=== PATIENT | female | born 1990 ===

== ENCOUNTER 2017-12-27 11:30 | Inpatient (IN) | payer OTHER ==
[~2017-12-27] VITALS: Ht 162.6 cm; Wt 63.0 kg
[2018-01-23] MEDS ORDERED: NKM (09:55)
[2018-01-25] VITALS (15 sets, daily range): BP systolic 84–134; BP diastolic 48–85
[2018-01-25] MEDS ORDERED: Zemuron 50mg/5ml Inj IV ONE (06:20)
[2018-01-25] MEDS ORDERED: LR 1000ml 1,000 ML IVLG SCH (06:28)
[2018-01-25] MEDS ORDERED: Hydromorphone 0.5mg/0.5ml inj IVP PRN (06:30)
[2018-01-25] MEDS ORDERED: HYDROcodone/Acetamin 7.5/325 tab ORAL PRN (06:30)
[2018-01-25] MEDS ORDERED: Norco 5mg/325mg tab ORAL PRN ×2 (06:30→14:30)
[2018-01-25] MEDS ORDERED: DiphenhydrAMINE 50mg/ml Inj IVP PRN (06:30)
[2018-01-25] MEDS ORDERED: LORazepam Inj 2mg/ml 1ml IV PRN (06:30)
[2018-01-25] MEDS ORDERED: Metoclopramide 10mg/2ml Inj IVP PRN (06:30)
[2018-01-25] MEDS ORDERED: Atropine Inj 1mg/10ml Syr IV PRN (06:30)
[2018-01-25] MEDS ORDERED: Ketorolac 30mg Inj IV PRN ×3 (06:30→14:30)
[2018-01-25] MEDS ORDERED: fentaNYL 100 mcg/2 mL IV PRN (06:30)
[2018-01-25] MEDS ORDERED: Acetaminophen (Non formulary) 100 ML IV ONE (06:30)
[2018-01-25] MEDS ORDERED: oxyCODONE HCL/Acetaminophen 5/325mg ORAL PRN (06:30)
[2018-01-25] MEDS ORDERED: Midazolam 2mg/2ml Inj IVP PRN (06:30)
[2018-01-25] MEDS ORDERED: Labetalol 5mg/ml 20ml vial IV PRN (06:30)
[2018-01-25] MEDS ORDERED: EPINEPHrine 1mg/1ml Amp ONE (06:32)
--- NOTE | 2018-01-25 06:32 | Anethesia Preoperative Eval ---
Anesthesia Pre-op PMH/ROS General Date of Evaluation: Jan 25, 2018 Time of Evaluation: 07:21 Anesthesiologist: Buddy ASA Score: ASA 1 Mallampati Score Class I : Soft palate, uvula, fauces, pillars visible Class II: Soft palate, uvula, fauces visible Class III: Soft palate, base of uvula visible Class IV: Only hard plate visible Mallampati Classification: Class I Surgeon: Zeke Diagnosis: Neck Pain Surgical Procedure: ACDF C5-6 Family History: no anesthesia problems Allergies: Coded Allergies: No Known Allergies (Unverified , 01/25/18) Medications: see eMAR Past Medical History PSxH Narrative: Umbilical Hernia Repair Anesthesia Pre-op Phys. Exam Physician Exam Last Vital Signs Date Time Temp Pulse Resp B/P (MAP) Pulse Ox O2 Delivery O2 Flow Rate FiO2 01/25/18 06:00 97.9 65 18 119/71 100 Room Air 97.9 Constitutional: NAD Neurologic: CN 2-12 intact Cardiovascular: RRR Respiratory: CTA Gastrointestinal: S/NT/ND Airway Exam Mallampati Score: Class I MO: full ROM: limited Teeth: intact Anesthesia Pre-op A/P Labs Urine Test Test 01/25/18 05:30 Urine HCG, Qualitative Negative (NEGATIVE) Risk Assessment & Plan Assessment: ASA 1 Plan: GA, BIS, GlideScope Status Change Before Surgery: No Pre-Antibiotics Dru Grams Ancef IV Given Within 1 Hr of Incision: Yes Time Given: 07:36 Bandar Goodwin MD Jan 25, 2018 06:32
[2018-01-25] MEDS ORDERED: Thrombin 5000 units TOPIC ONE (06:33)
[2018-01-25] MEDS ORDERED: Bacitracin 50000 Units Vial ONE (06:33)
[2018-01-25] MEDS ORDERED: Bupivacaine 0.5% Inj 30 ml vial INJ ONE (06:33)
[2018-01-25] MEDS ORDERED: Lidocaine 1% Plain 30 ml INJ ONE ×3 (06:33→09:26)
[2018-01-25] MEDS ORDERED: Lidocaine 1% MPF 10mg/ml 5ml ONE (06:53)
[2018-01-25] MEDS ORDERED: Sodium Chloride 10ml vial INJ ONE (06:53)
[2018-01-25] MEDS ORDERED: Dexamethasone 4mg/ml vial ONE (06:53)
[2018-01-25] MEDS ORDERED: fentaNYL 100 mcg/2 mL IV ONE ×2 (06:54→08:18)
[2018-01-25] MEDS ORDERED: Ketamine 500mg Inj ONE (06:56)
[2018-01-25] MEDS ORDERED: ceFAZolin sod 2 GM in D5W 110 ML IVPB ONE (07:00)
--- NOTE | 2018-01-25 07:16 | Pre-Procedure Note/Attestation ---
Pre-Procedure Note/Attestation Complete Prior to Procedure Procedure Narrative: acdf c56 Indications for Procedure Pre-Operative Diagnosis: cervical radiculopathy Attestation I attest that I discussed the nature of the procedure; its benefits; risks and complications; and alternatives (and the risks and benefits of such alternatives ), prior to the procedure, with the patient (or the patient's legal applications sales representative). I attest that, if there was a reasonable possibility of needing a blood transfusion, the patient (or the patient's legal applications sales representative) was given the [facility] standardized written summary, pursuant to the Donaldo Aubree Blood Safety Act ([place] Health and Safety Code # 1645, as amended). I attest that I re-evaluated the patient just prior to the surgery and that there has been no change in the patient's H&P, except as documented below: Lopez Alanis MD Jan 25, 2018 07:16
[2018-01-25] MEDS ORDERED: Heparin 1000 units/ml 1ml Vial ONE ×2 (08:12→08:13)
--- NOTE | 2018-01-25 08:29 | 48 Hour Post Anesthesia Eval ---
Post Anesthesia Evaluation Procedure: ACDF C5-6 Date of Evaluation: Jan 25, 2018 Time of Evaluation: 11:43 Blood Pressure Systolic: 106 0: 72 Pulse Rate: 78 Respiratory Rate: 18 Temperature (Fahrenheit): 98.2 O2 Sat by Pulse Oximetry: 99 Airway: patent Nausea: No Vomiting: No Pain Intensity: 2 Hydration Status: adequate Cardiopulmonary Status: Stable Mental Status/LOC: patient returned to baseline Follow-up Care/Observations: 0 Post-Anesthesia Complications: 0 Follow-up care needed: ready to discharge Bandar Goodwin MD Jan 25, 2018 08:29
--- NOTE | 2018-01-25 08:29 | Immediate Post-Op Evaluation ---
Immediate Post-Op Evalulation Immediate Post-Op Evalulation Procedure: ACDF C5-6 Date of Evaluation: Jan 25, 2018 Time of Evaluation: 10:37 IV Fluids: 1000 LR Blood Products: 0 Estimated Blood Loss: 7 Urinary Output: 0 Blood Pressure Systolic: 109 Blood Pressure Diastolic: 65 Pulse Rate: 80 Respiratory Rate: 16 O2 Sat by Pulse Oximetry: 99 Temperature (Fahrenheit): 97.7 Pain Score (1-10): 3 Nausea: No Vomiting: No Complications 0 Patient Status: awake, reacts, patent, extubated, none Hydration Status: adequate Dru Grams Ancef IV Given Within 1 Hr of Incision: Yes Time Given: 07:41 Bandar Goodwin MD Jan 25, 2018 08:29
--- NOTE | 2018-01-25 10:12 | Brief Operative Note ---
Immediate Post Operative Note Operative Note Pre-op Diagnosis: cervical radiculopathy Procedure: acdf c56 Post-op Diagnosis: cervical radiculopathy Post-op Diagnosis: same as pre-op Findings: consistent w/pre-op dx studies Surgeon: Zeke Professional Programmer Analyst: Jona Anesthesiologist: Chito Anesthesia: general Specimen: yes Complications: none Condition: stable Fluids: 1 l Estimated Blood Loss: minimal - 7ccc Drains: none Implant(s) used?: Yes Lopez Alanis MD Jan 25, 2018 10:12
[2018-01-25] MEDS: D5 1/2NS 1,000 ML IV SCH ×2 (13:42→22:58)
[2018-01-25] MEDS: ceFAZolin sod 1 GM in D5W 110 ML IV SCH ×2 (13:42→22:58)
--- NOTE | 2018-01-25 14:25 | History and Physical ---
History of Present Illness General Date patient seen: Jan 25, 2018 Present Illness HPI 27 year old female with hx of cervical radiculopathy admitted for acdf c56. Postoperatively she is admitted to surgical floor for post op care. Allergies: Coded Allergies: No Known Allergies (Unverified , 01/25/18) Medication History Scheduled Carisoprodol* (Soma*), 350 MG PO Q6H, (Reported) No Known Medications* (NKM - No Known Medications*), 0 ., (Reported) Scheduled PRN Hydrocodone Bit/Acetaminophen 10-325* ([place] 10-325*), 1 TAB ORAL Q4H PRN for For Pain, (Reported) Patient History Healthcare decision maker marilu pal - georginafrluann Resuscitation status Full Code Advanced Directive on File Past Medical/Surgical History Past Medical/Surgical History: (1) Cervical radiculopathy Review of Systems All Other Systems: negative except mentioned in HPI Physical Exam General Appearance: WD/WN, no apparent distress Lines, tubes and drains: peripheral Neck: non-tender, normal alignment Respiratory/Chest: chest wall non-tender, lungs clear Breasts: no masses Cardiovascular/Chest: normal peripheral pulses Abdomen: normal bowel sounds, hyperactive bowel sounds Last 24 Hour Vital Signs Date Time Temp Pulse Resp B/P (MAP) Pulse Ox O2 Delivery O2 Flow Rate FiO2 01/25/18 13:30 97.7 79 20 124/84 98 Nasal Cannula 2.0 97.7 01/25/18 12:53 98.2 68 18 87/81 97 Nasal Cannula 2.0 98.2 01/25/18 12:23 98.0 18 132/81 98 Nasal Cannula 3 98.0 01/25/18 11:55 98 70 17 120/72 97 Nasal Cannula 3 98.0 01/25/18 11:45 74 17 122/74 97 Nasal Cannula 3 01/25/18 11:30 76 19 122/74 99 Nasal Cannula 3 01/25/18 11:15 76 15 128/85 99 Nasal Cannula 3 01/25/18 11:00 74 16 132/77 99 Nasal Cannula 3 01/25/18 10:47 82 16 134/84 99 Nasal Cannula 3 01/25/18 10:36 91 16 127/77 99 Simple Mask 10 01/25/18 10:31 77 16 112/63 99 Simple Mask 10 01/25/18 10:29 208.8 78 18 99 01/25/18 10:28 207.9 80 16 99 01/25/18 10:26 97.7 79 16 125/74 99 Simple Mask 10 97.7 01/25/18 06:00 97.9 65 18 119/71 100 Room Air 97.9 Laboratory Tests Test 01/25/18 05:30 Urine HCG, Qualitative Negative (NEGATIVE) Height (Feet): 5 Height (Inches): 4.00 Weight (Pounds): 139 Medications Current Medications Medications (Trade) Dose Ordered Sig/Titus Route PRN Reason Start Time Stop Time Status Last Admin Dose Admin Cefazolin Sodium 1 gm/Dextrose 110 ml @ 220 mls/hr Q8H IV 01/25/18 15:30 01/26/18 07:59 01/25/18 13:42 Dextrose/Sodium Chloride 1,000 ml @ 100 mls/hr Q10H IV 01/25/18 13:00 02/24/18 12:59 01/25/18 13:42 Docusate Sodium (Colace) 100 mg TWICE A DAY ORAL 01/25/18 18:00 02/24/18 17:59 Ondansetron HCl (Zofran) 4 mg Q6H PRN IVP Nausea & Vomiting 01/25/18 13:45 02/24/18 13:44 01/25/18 13:42 Assessment/Plan Problem List: (1) Cervical radiculopathy ICD Codes: M54.12 - Radiculopathy, cervical region SNOMED: [id number] (2) acdf c56 Assessment/Plan post op care pain management antiemetics dvt prophylaxis Pedro Luis Pereyra MD Jan 25, 2018 14:25
[2018-01-25] MEDS ORDERED: Morphine Sulfate 2mg/ml Inj IVP PRN (14:30)
[2018-01-25] MEDS ORDERED: Morphine Sulfate 4mg/ml Inj IVP PRN (14:30)
--- NOTE | 2018-01-25 14:48 | Diagnostic Imaging Report ---
Indication: Pain Technique: Fluoroscopic images from spinal surgery. Operating surgeon:Zeke Total fluoroscopy time: 21.5 seconds Total fluoroscopy dose: 4.79 mGy Comparison: None Findings: 3 intraoperative fluoroscopic images from spinal surgery were submitted for archival the PACS. Initial image demonstrates endotracheal tube in place. A surgical measurement is noted projecting anterior to the area C5-C6 disc space. Subsequent images demonstrate expected appearance status post anterior cervical discectomy and fusion at C5-C6 Impression: Fluoroscopic images from spinal surgery. Please see operative report.
[2018-01-25] MEDS ORDERED: D5 1/2NS 1000ml IV ONE (16:55)
[2018-01-25] MEDS ORDERED: Tubing IV Secondary IV ONE (16:55)
[2018-01-25] MEDS: Docusate 100mg cap ORAL SCH (17:29)
[2018-01-25] MEDS ORDERED: TransDerm Scop 1mg/72HR Patch TDERMAL SCH (17:30)
[2018-01-26] VITALS: BP 106/51
[2018-01-26 04:30] VITALS: BP 93/56
[2018-01-26] MEDS: ceFAZolin sod 1 GM in D5W 110 ML IV SCH (06:34)
[2018-01-26 08:00] VITALS: BP 108/73
[2018-01-26] MEDS: Docusate 100mg cap ORAL SCH (08:34)
--- NOTE | 2018-01-26 09:55 | General Progress Note ---
Progress Note Progress Note minimal neck pain adn no arm pain mild dysphagia otherwise feels well a and o times 3 inc cdi motor 5/5 in the ue and the le 5/5 lt intact a: doing well p: dc today followu up in the next 7 to 10 days Lopez Alanis MD Jan 26, 2018 09:55
[2018-01-26] MEDS ORDERED: NORCO 10-325 T1 EACH ORAL (10:52)
[2018-01-26] MEDS ORDERED: SOMA350 MG PO (10:53)
[2018-01-26 11:14] VITALS: BP 108/73
--- NOTE | 2018-01-26 11:14 | 48 Hour Post Anesthesia Eval ---
Post Anesthesia Evaluation Procedure: ACDF C5-6 Date of Evaluation: Jan 26, 2018 Time of Evaluation: 08:00 Blood Pressure Systolic: 108 0: 73 Pulse Rate: 54 Respiratory Rate: 20 Temperature (Fahrenheit): 98 O2 Sat by Pulse Oximetry: 98 Airway: patent Nausea: No Vomiting: No If pain is > 6 Comment: 2 Hydration Status: adequate Mental Status/LOC: patient returned to baseline Post-Anesthesia Complications: none Follow-up care needed: N/A Cathy Castellanos M.D. Jan 26, 2018 11:14
--- NOTE | 2018-01-26 12:54 | Pulmonology Progress Note ---
Assessment/Plan Problems: (1) Cervical radiculopathy (2) acdf c56 Assessment/Plan post op care pain management antiemetics dvt prophylaxis Subjective ROS Limited/Unobtainable: No Constitutional: Reports: no symptoms HEENT: Repors: no symptoms Respiratory: Reports: no symptoms Cardiovascular: Reports: no symptoms Allergies: Coded Allergies: No Known Allergies (Unverified , 01/25/18) Objective Last 24 Hour Vital Signs Date Time Temp Pulse Resp B/P (MAP) Pulse Ox O2 Delivery O2 Flow Rate FiO2 01/26/18 11:14 208.4 54 20 98 01/26/18 08:00 98.0 54 20 108/73 98 Room Air 98.0 01/26/18 04:30 98.2 63 18 93/56 96 Room Air 98.2 01/26/18 00:00 98.0 67 18 106/51 96 Room Air 98.0 01/25/18 20:30 98.0 70 18 84/48 98 Room Air 98.0 01/25/18 16:00 97.7 70 18 117/54 100 Room Air 97.7 01/25/18 13:30 97.7 79 20 124/84 98 Nasal Cannula 2.0 97.7 Intake and Output 01/25/18 01/26/18 19:00 07:00 # Voids 3 General Appearance: WD/WN HEENT: normocephalic, atraumatic Respiratory/Chest: chest wall non-tender, lungs clear Breasts: no masses Cardiovascular: normal peripheral pulses Abdomen: normal bowel sounds, soft, non tender Genitourinary: normal external genitalia Extremities: no clubbing Neurologic/Psychiatric: collateral clerk II-XII grossly normal Microbiology Date/Time Source Procedure Growth Status 01/25/18 06:00 Nasal Nares MRSA Culture - Final NO METHICILLIN RESISTANT STAPH AUREUS... Complete Current Medications Medications (Trade) Dose Ordered Sig/Titus Route PRN Reason Start Time Stop Time Status Last Admin Dose Admin Acetaminophen/ Hydrocodone Bitart ([place] 5/325) 1 tab EVERY 6 HOURS PRN ORAL Moderate Pain (Pain Scale 4-6) 01/25/18 14:30 02/01/18 14:29 01/26/18 08:34 Docusate Sodium (Colace) 100 mg TWICE A DAY ORAL 01/25/18 18:00 02/24/18 17:59 01/26/18 08:34 Ketorolac Tromethamine (Toradol 30mg) 30 mg Q6H PRN IV MODERATE BREAKTHROUGH PAIN 01/25/18 14:30 01/30/18 14:29 Morphine Sulfate (Morphine Sulfate) 2 mg Q4H PRN IVP SEVERE BREAKTHROUGH PAIN 01/25/18 14:30 02/01/18 14:29 Morphine Sulfate (Morphine Sulfate) 4 mg Q4H PRN IVP Severe Pain (Pain Scale 7-10) 01/25/18 14:30 02/01/18 14:29 Ondansetron HCl (Zofran) 4 mg Q6H PRN IVP Nausea & Vomiting 01/25/18 13:45 02/24/18 13:44 01/25/18 13:42 Pedro Luis Pereyra MD Jan 26, 2018 12:54
--- NOTE | 2018-01-26 22:45 | Operative Note - Dictated ---
DATE OF OPERATION: 01/25/2018 PREOPERATIVE DIAGNOSIS: C5-C6 disc protrusion with right upper extremity radiculopathy. POSTOPERATIVE DIAGNOSIS: C5-C6 disc protrusion with right upper extremity radiculopathy. PROCEDURE PERFORMED: 1. Anterior cervical interbody fusion at C5-C6. 2. Anterior cervical instrumentation at C5-C6. 3. Anterior cervical diskectomy and decompression at C5-C6. 4. Implantation of PEEK interbody device at C5-C6 with allograft and local autograft. 5. Intraoperative use of fluoroscopy. 6. Intraoperative use of microscope. 7. SSEP neurophysiological monitoring. SURGEON: Lopez Alanis M.D. ALUMINUM SHINGLE ROOFER: Osmany Tenorio M.D. ANESTHESIOLOGIST: Dr. Goodwin. ESTIMATED BLOOD LOSS: 15 mL. IV ANTIBIOTICS: 1 g of Ancef. FLUIDS: A 1 liter of crystalloid. BACKGROUND: The patient is a pleasant female, who has failed nonoperative treatments including a long course of interventional pain management, physical therapy, home exercises and she remained to have continued symptoms, which affected her activities of daily living and her functional capacity. Option for above treatment was given. Risks, alternatives, and benefits were discussed with the patient at length. Risks include, but are not limited to anesthesia complications including , medical complications including liver, kidney, and cardiopulmonary deficits, or bleeding infection. The patient understood and wished to proceed. Written and verbal consent was given. No guarantees were given. OPERATIVE FINDINGS: Disk protrusion at C5-C6 with lateral recess stenosis and intraforaminal extension of disk material causing compression of the traversing and exiting right C6 nerve root. DESCRIPTION OF OPERATION: The patient was brought into the operating room supine on a stretcher. Appropriate IV lines were placed by the anesthesiologist. A 2 g of Ancef was administered. The patient was induced and intubated without complication. The patient was positioned onto the operating room table. The neck was placed into neutral alignment. The arms were tucked by the side and all bony prominences were well padded as well as the four extremities. SSEP neurophysiological leads and EMG leads were placed and remained stable throughout the case. Preoperative fluoroscopy was done and the planned incision was over the right side of the neck over the C5-C6 interspace. Fluoroscopy showed the neck to be in adequate alignment. The neck was prepped and draped in the usual sterile fashion. At this point, an incision was carried out over the crease of the neck over the right side of the neck. Hemostasis was achieved with bipolar cautery. The platysma was incised in line with the skin incision. Blunt dissection was carried out in the interval between the strap muscles and sternocleidomastoid. Superficial cervical fascia was dissected caudally as well as cephalad. Carotid pulse was palpated and was found to be well lateral to the field of dissection. Deep cervical fascia was encountered. Once the deep cervical fascia was found, blunt dissection was carried out with [place] as well as finger dissection to find the prevertebral space. The longus colli was found on both sides of the spine. The longus coli was subperiosteally dissected, retractors were set into place. All of this was done with intraoperatively sterilely draped microscope. The spinal needle was used to identify the disk space and lateral fluoroscopy revealed the C5-C6 disk space. Retractors were set into place. At this point, attention was diverted to doing the diskectomy. With a #11 scalpel, a incision was made into the anterior annulus and with the use of straight and curved curette. A diskectomy was done. Disc space cartilage was removed. The bone was well preserved and at this point, a high-speed drill was used to drill the posterior aspect of the vertebral bodies. Autograft was saved for later implantation into the PEEK interbody device and this drilling was done to the level of the posterior longitudinal ligament. With # 1 and #2 Microsect curettes, the posterior longitudinal ligament was incised and removed and the dura was found to be completely decompressed. Herniation right paracentral and right inter foraminal was found causing compression of the traversing and exiting right C6 nerve root and at this point, attention was diverted decompressing the foramina. Foraminal bites were taken with #1 and #2 Kerrison punches until a complete decompression of the lateral recess, central canal and foramina was completed. The wound was copiously irrigated with triple antibiotic solution and the disk space was measured and trials were set into place and the following PEEK interbody device was chosen. A 7 x 14 x 11 mm cage from the spinal element system, which was packed with allograft and autograft and tamped into place with good recreation of disk height and lordosis at C5-C6. A 10 mm [place] plate was placed and was fixed to the anterior surface of the vertebral body with the following self drilling screws at the left C5 a 12 mm screw was placed and at the right C5 a 14 mm screw was placed and at C6 bilaterally 40 mm screws were placed. Each screw had excellent purchase and sac below the locking mechanism of the [place] plate appropriately. Final AP and lateral fluoroscopy images revealed all the instrumentation to be in excellent position. All sponge, needle and instrument counts were correct. Hemostasis was achieved with bipolar cautery and Gelfoam thrombin. The platysma was closed with 3-0 Vicryl sutures. The subcuticular layer was closed with 4-0 Monocryl suture. The skin was closed with Dermabond sterile dressing. A C-collar was placed. The patient was extubated and was taken to the recovery room in stable condition, was found to be neurovascularly intact and was admitted to the hospital for monitoring. Lopez Alanis M.D. DR: KATERYNA JOB#: [id number] CC:
== END 2018-01-26 12:50 | disposition home or self-care (01) | DRG 473 ==
LOC: SDSOVERFLO 01-25 05:18 → 3E 01-25 12:36
PROC: 4A11X4G Monitoring of Peripheral Nervous Electrical Activity, Intraoperative, External Approach (ICD-10-PCS; principal; 2018-01-25 07:00)
PROC: 0RG10A0 Fusion of Cervical Vertebral Joint with Interbody Fusion Device, Anterior Approach, Anterior Column, Open Approach (ICD-10-PCS; principal; 2018-01-25 07:00)
PROC: 0RT30ZZ Resection of Cervical Vertebral Disc, Open Approach (ICD-10-PCS; principal; 2018-01-25 07:00)
DX: M50.122 Cervical disc disorder at C5-C6 level with radiculopathy (principal); M48.02 Spinal stenosis, cervical region
CPT/HCPCS: 36415; 72040; 76000; 81025; 86850; 86900; 86901; 87081; 94003; 94150; 96360; 96365; J2405